=== PATIENT | male | born 1955 | race Caucasian/White ===

== ENCOUNTER 2017-01-18 23:52 | Emergency (ER) | payer OTHER ==
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
[2017-01-19] MEDS ORDERED: Sodium Chloride 0.9% 10 ML Syringe FLUSH PRN (00:12)
[2017-01-19] MEDS ORDERED: Iopamidol 755 Mg/ML 100 ML Bottle IVPUSH ONE (00:12)
[2017-01-19 01:10] VITALS: BP 156/101
[2017-01-19] MEDS ORDERED: HYDROmorphone 1 MG/ML Syringe IVPUSH ONE (01:28)
--- NOTE | 2017-01-20 09:54 | CT ---
CT chest Technique: Multiple axial sections through the chest were obtained. Intravenous contrast was utilized. Comparison: No previous chest imaging. Findings: Mediastinum and hilar regions appear within normal limits. No pericardial thickening is seen. No significant coronary artery calcification is noted. Chest wall structures appear within normal limits. Lungs are clear. No pulmonary contusion is seen. No pneumothorax or pleural effusion is seen. Bone window settings were reviewed. Slightly displaced fracture is seen within the right lateral sixth rib. Nondisplaced fracture is noted within the seventh through ninth ribs. No left-sided rib fracture is seen. No compression deformity is seen on the reconstructed sagittal images within the spine. Sternum appears intact on the reconstructed sagittal images. Impression: 1. Several right-sided rib fractures. Minimal displacement is noted within the sixth rib. 2. No other acute abnormality is appreciated. Diagnostic code #3 Agree with preliminary report issued by [employer] ([email or web address] preliminary report dictated on 01/19/17, 2:13 AM Central Time) CT abdomen and pelvis Technique: Multiple axial sections were obtained from above the dome of the diaphragm inferiorly through the pubic symphysis. Intravenous contrast was utilized. No oral contrast has been given. Delayed images were also obtained through the pelvis. Comparison: No previous abdominal imaging. Findings: Liver shows mild fatty infiltration. No focal abnormality is identified within the liver. Spleen appears within normal limits. Small soft tissue nodule noted medial to the spleen compatible with accessory splenic tissue. Adrenal glands show no nodule. Kidneys show symmetric contrast enhancement without hydronephrosis or mass. Gallbladder is contracted. No calcified gallstones are seen. Mild areas of the ectasia are seen within the aorta. Maximum AP dimension distally within the aorta is about 2.1 cm. Atherosclerotic calcification is noted within the aorta and iliac vessels. No retroperitoneal adenopathy or mesenteric abnormalities are seen. No pelvic mass or adenopathy is noted. Calcifications are seen within the prostate gland as an incidental note. Delayed images show contrast within the ureters and within the bladder with no contrast extravasation. No free fluid or inflammatory change is seen. Bone window settings were reviewed showing scattered degenerative change within the lumbar spine. No acute abnormality is appreciated within the lumbar spine or within the pelvis. Impression: 1. Fatty infiltration within the liver. Other incidental findings. 2. No acute abnormality is identified on CT study of the abdomen and pelvis. Diagnostic code #2 I agree with preliminary report issued by [employer] ([facility] preliminary report dictated on 01/19/17, 2:13 AM Central Time)
--- NOTE | 2017-01-20 09:54 | CT ---
Head CT Technique: Multiple axial sections through the brain were obtained. Intravenous contrast was not utilized. Comparison: No previous intracranial imaging. Findings: Ventricles along with basal cisterns and sulci over the convexities are mildly prominent. No abnormal parenchymal densities are seen. No evidence of intracranial hemorrhage. No midline shift or mass effect is seen. Bone window settings were reviewed which show nothing acute within the sinuses. No acute calvarial abnormality is appreciated. Impression: 1. Incidental findings. Nothing acute is identified on noncontrast head CT study. Diagnostic code #2 I agree with preliminary report issued by [email or web address] ([facility] preliminary report dictated on 01/19/17, 1:55 AM Central Time)
== END 2017-01-19 02:00 | disposition home or self-care (01) ==
LOC: JD.ED 23:52
DX: S22.41XA Multiple fractures of ribs, right side, initial encounter for closed fracture (principal); S51.811A Laceration without foreign body of right forearm, initial encounter; S41.112A Laceration without foreign body of left upper arm, initial encounter; S81.812A Laceration without foreign body, left lower leg, initial encounter; S81.811A Laceration without foreign body, right lower leg, initial encounter; S01.21XA Laceration without foreign body of nose, initial encounter; S01.81XA Laceration without foreign body of other part of head, initial encounter; S00.01XA Abrasion of scalp, initial encounter; S00.81XA Abrasion of other part of head, initial encounter; S00.212A Abrasion of left eyelid and periocular area, initial encounter; S40.812A Abrasion of left upper arm, initial encounter; S40.811A Abrasion of right upper arm, initial encounter; S20.212A Contusion of left front wall of thorax, initial encounter; S30.1XXA Contusion of abdominal wall, initial encounter; V47.5XXA Car driver injured in collision with fixed or stationary object in traffic accident, initial encounter; Y92.410 Unspecified street and highway as the place of occurrence of the external cause; F10.120 Alcohol abuse with intoxication, uncomplicated; K76.0 Fatty (change of) liver, not elsewhere classified; Z79.899 Other long term (current) drug therapy; Z88.5 Allergy status to narcotic agent
CPT/HCPCS: 36415; 70450; 71260; 74177; 80053; 85025; 96374; 99285; G0480; J1170; J7050; Q9967; 99284

== ENCOUNTER 2020-10-26 08:24 | Day surgery (SDC) | payer BC, OTHER ==
--- NOTE | 2020-10-16 10:02 | PCM.SN.2 ---
#1 Interpretation EKG Date: 10/16/20 Time: 07:08 Rhythm: NSR Rate (Beats/Min): 68 Western: LAD-Left Western Deviation P-Wave: Present QRS: Normal ST-T: Normal QT: Normal
[~2020-10-26 08:24] MED LIST: Lactated Ringers 1,000 ML IV SCH; Lidocaine 1%/Sod Bicarbonate in NS 8.4% 1 ML Syringe IDERM PRN; Sodium Chloride 0.9% 10 ML Syringe FLUSH PRN
[2020-10-26] MEDS ORDERED: Lidocaine 0.5% 50 ML SDV ONE (09:34)
[2020-10-26] MEDS ORDERED: Lidocaine 1% 2 ML ONE (09:45)
[2020-10-26] MEDS ORDERED: Propofol 200 MG/20 ML SDV ONE ×2 (09:45→10:22)
[2020-10-26] MEDS ORDERED: Midazolam 1 MG/ML 2 ML SDV ONE (09:46)
[2020-10-26] MEDS ORDERED: fentaNYL 100 MCG/2 ML SDV ONE (09:46)
--- NOTE | 2020-10-26 09:54 | PCM.PREANE ---
Preanesthetic Assessment - Procedure Proposed Procedure: Right long finger mass removal - Anesthesia/Transfusion/Family Hx Anesthesia History: Prior Anesthesia Without Reaction - Review of Systems General: No Symptoms Pulmonary: No Symptoms Cardiovascular: No Symptoms Gastrointestinal: No Symptoms Neurological: No Symptoms Other: Reports: None - Physical Assessment NPO Status Date: 10/25/20 NPO Status Time: 21:30 Vital Signs: Last Vital Signs Temp 98.7 F 10/26/20 09:00 Pulse 61 10/26/20 09:00 Resp 16 10/26/20 09:00 BP 155/98 H 10/26/20 09:00 Pulse Ox 99 10/26/20 09:00 Height: 1.73 m Weight: 77.111 kg ASA Class: 1 Mental Status: Alert & Oriented x3 Airway Class: Mallampati = 2 Dentition: Reports: Normal Dentition, Chaplin(s), Missing Tooth/Teeth Thyro-Mental Finger Breadths: 3 Mouth Opening Finger Breadths: 3 ROM/Head Extension: Full Lungs: Clear to Auscultation, Normal Respiratory Effort Cardiovascular: Regular Rate, Regular Rhythm - Lab Values: Laboratory Last Values MRSA (PCR) Negative 10/24/20 11:44 - Allergies Allergies/Adverse Reactions: Allergies Allergy/AdvReac Type Severity Reaction Status Date / Time propoxyphene Allergy Rash Verified 10/26/20 09:52 [From Susan] - Acknowledgements Anesthesia Type Planned: TL, MAC Pt an Appropriate Candidate for the Planned Anesthesia: Yes Alternatives and Risks of Anesthesia Discussed w Pt/Guardian: Yes Pt/Guardian Understands and Agrees with Anesthesia Plan: Yes PreAnesthesia Questionnaire HEENT History: Reports: Impaired Vision Cardiovascular History: Reports: Hypertension Respiratory History: Reports: None Gastrointestinal History: Reports: Hemorrhoids, Other (See Below) Other Gastrointestinal History: c diff, saldaña's esophagus Genitourinary History: Reports: None E BUSINESS PROJECT MANAGER History: Reports: None Other Musculoskeletal History: finger mass Neurological History: Reports: None Psychiatric History: Reports: None Endocrine/Metabolic History: Reports: Other (See Below) Other Endocrine/Metabolic History: decreased testosterone Hematologic History: Reports: None Immunologic History: Reports: None Oncologic (Cancer) History: Reports: None Dermatologic History: Reports: None - Infectious Disease History Infectious Disease History: Reports: C-Difficile - Past Surgical History HEENT Surgical History: Reports: LASIK Cardiovascular Surgical History: Reports: None Respiratory Surgical History: Reports: None GI Surgical History: Reports: Appendectomy, Colonoscopy, EGD Female Surgical History: Reports: None Male Surgical History: Reports: None Endocrine Surgical History: Reports: None Neurological Surgical History: Reports: None Musculoskeletal Surgical History: Reports: Other (See Below) Other Musculoskeletal Surgeries/Procedures:: hand/wrist surgery, knee surgery, shoulder surgery Oncologic Surgical History: Reports: None Dermatological Surgical History: Reports: None - SUBSTANCE USE Tobacco Use Status *Q: Never Tobacco User Recreational Drug Use History: No - HOME MEDS Home Medications: Home Meds Acetaminophen/HYDROcodone [[place] 325-5 MG] 1 - 2 tab PO Q6H PRN #4 tablet 10/25/20 [Rx] - CURRENT (IN HOUSE) MEDS Current Meds: Current Medications Lactated Ringer's (Ringers, Lactated) 1,000 mls @ 125 mls/hr IV ASDIRECTED VANESA Stop: 10/26/20 23:00 Last Admin: 10/26/20 09:10 Dose: 125 mls/hr Documented by: Lidocaine/Sodium Bicarbonate (Lidocaine 1%/Sod Bicarbonate In Ns 8.4% 1 Ml Syringe) 0.25 ml IDERM ONETIME PRN PRN Reason: Prior to IV Start Stop: 10/26/20 18:00 Sodium Chloride (Sodium Chloride 0.9% 10 Ml Syringe) 10 ml FLUSH ASDIRECTED PRN PRN Reason: Keep Vein Open Stop: 10/26/20 18:00 Discontinued Medications Fentanyl (Fentanyl 100 Mcg/2 Ml Sdv) Confirm Administered Dose 100 mcg .ROUTE .STK-MED ONE Stop: 10/26/20 09:47 Lactated Ringer's (Ringers, Lactated) 1,000 mls @ 125 mls/hr IV ASDIRECTED VANESA Stop: 10/28/18 23:00 Lidocaine HCl (Xylocaine-Mpf 1%) Confirm Administered Dose 2 mls @ as directed .ROUTE .STK-MED ONE Stop: 10/26/20 09:46 Lidocaine HCl (Lidocaine 0.5% 50 Ml Sdv) Confirm Administered Dose 50 ml .ROUTE .STK-MED ONE Stop: 10/26/20 09:35 Lidocaine/Sodium Bicarbonate (Buffered Lidocaine 1% In Ns 8.4%) 0.25 ml IDERM ONETIME PRN PRN Reason: Prior to IV Start Stop: 10/28/18 18:00 Midazolam HCl (Midazolam 1 Mg/Ml 2 Ml Sdv) Confirm Administered Dose 2 mg .ROUTE .STK-MED ONE Stop: 10/26/20 09:47 Propofol (Propofol 200 Mg/20 Ml Sdv) Confirm Administered Dose 200 mg .ROUTE .STK-MED ONE Stop: 10/26/20 09:46 Sodium Chloride (Saline Flush) 10 ml FLUSH ASDIRECTED PRN PRN Reason: Keep Vein Open Stop: 10/28/18 18:00
[2020-10-26] MEDS ORDERED: ceFAZolin 1 GM Vial ONE (10:12)
[2020-10-26] MEDS ORDERED: Bupivacaine 0.25% 10 ML SDV ONE (10:23)
[2020-10-26] MEDS ORDERED: Lidocaine 1% with EPINEPHrine 1:100,000 10 ML MDV ONE (10:26)
[2020-10-26] MEDS ORDERED: Lidocaine 1% 30 ML SDV ONE (10:28)
--- NOTE | 2020-10-26 11:06 | PCM48HPAN ---
Post Anesthesia Note - EVALUATION WITHIN 48HRS OF ANESTHETIC Vital Signs in Normal Range: Yes Patient Participated in Evaluation: Yes Respiratory Function Stable: Yes Airway Patent: Yes Cardiovascular Function Stable: Yes Hydration Status Stable: Yes Pain Control Satisfactory: Yes Nausea and Vomiting Control Satisfactory: Yes Mental Status Recovered: Yes Vital Signs: Last Vital Signs Temp 97.6 F 10/26/20 10:44 Pulse 80 10/26/20 10:44 Resp 16 10/26/20 10:44 BP 136/85 10/26/20 10:44 Pulse Ox 94 L 10/26/20 10:44
--- NOTE | 2020-10-26 11:36 | PCM.OPNOTE ---
- General Post-Op/Procedure Note Date of Surgery/Procedure: 10/26/20 Operative Procedure(s): excision of mass right middle finger DIP joint Pre Op Diagnosis: right middle finger mass Anesthesia Technique: Local, MAC, Regional Block Primary Surgeon: Kel Meyer Anesthesia Provider: Pb Peterson Manager Library: Dixie Nielson EBL in mLs: 5 Complications: None Condition: Good
[2020-10-26 12:32] VITALS: BP 135/86; PULSE 51
--- NOTE | 2020-11-02 10:04 | OR ---
DATE OF OPERATION: 10/26/2020 SURGEON: Kel Meyer MD OPERATION PERFORMED: Excision of mass, right middle finger distal interphalangeal joint. PREOPERATIVE DIAGNOSIS: Right middle finger mass. POSTOPERATIVE DIAGNOSIS: Right middle finger mass. ANESTHESIA: Local MAC with regional block. ANESTHESIA PROVIDER: Sonal Godinez. SAMPLE TESTER: Dixie Nielson LPN. ESTIMATED BLOOD LOSS: 5 mL. COMPLICATIONS: None. CONDITION: Stable. DESCRIPTION OF PROCEDURE: The patient was identified in the preoperative holding area. Proper site was marked and identified by the surgeon. The patient was taken back to the operative theater where after adequate anesthesia with a Bell block, the right upper extremity was sterilely prepped and draped in the usual sterile fashion. OR time-out was performed. The patient received no antibiotics and it is not indicated for soft tissue hand procedure at this time. An incision was made, centered over the mass of the radial side of the DIP joint, this was taken down. It was noted to be a calcified mass off the capsule deep into the capsule. At this time with the use of a [place] blade and a rongeur, I was able to resect all the mass down to the capsular joint. There was no significant fluid and no signs of ganglion cyst or any neoplasm. At this time, it was found to be completely resected. All of it was sent to Pathology for permanent specimen. The size of the mass was roughly 8 mm x 8 mm. At this time, adequate saline was irrigated through the wound and 4-0 nylon suture was used for closure of the skin. The patient tolerated the procedure well and was sent to the PACU in stable condition. MMODAL /[id number]
== END 2020-10-26 11:32 | disposition home or self-care (01) ==
LOC: JD.SDS 08:24
PROVIDERS: ATTEND Orthopaedic Surgery
DX: M25.841 Other specified joint disorders, right hand (principal); K64.9 Unspecified hemorrhoids; K21.9 Gastro-esophageal reflux disease without esophagitis; I10 Essential (primary) hypertension; Z90.49 Acquired absence of other specified parts of digestive tract; Z98.890 Other specified postprocedural states; Z88.8 Allergy status to other drugs, medicaments and biological substances
CPT/HCPCS: 26160; J0690; J2250; J2704; J3010; J3490; J7120; 00400; 87641

== ENCOUNTER 2021-04-05 07:00 | Day surgery (SDC) | payer BC ==
--- NOTE | 2021-04-05 07:01 | PCM.PREANE ---
Preanesthetic Assessment - Procedure Proposed Procedure: EGD and colonoscopy - Anesthesia/Transfusion/Family Hx Anesthesia History: Prior Anesthesia Without Reaction Family History of Anesthesia Reaction: No Transfusion History: No Prior Transfusion(s) Intubation History: Unknown - Review of Systems General: No Symptoms Pulmonary: No Symptoms Cardiovascular: No Symptoms Gastrointestinal: Abdominal Pain (Cramping), Diarrhea, Nausea, Vomiting, Other (Patient stated that he had a streak of blood when he vomited (one episode)) Neurological: Headache Other: Reports: Easy Bleeding, Easy Bruising, Anxiety - Physical Assessment NPO Status Date: 04/05/21 NPO Status Time: 04:30 Vital Signs: BP 145/96 HR 68 97% RA 98.9 RR 18 Height: 1.73 m Weight: 69.4 kg ASA Class: 2 Mental Status: Alert & Oriented x3 Airway Class: Mallampati = 3 Dentition: Reports: [place](s), Missing Tooth/Teeth Thyro-Mental Finger Breadths: 3 Mouth Opening Finger Breadths: 3 ROM/Head Extension: Full Lungs: Clear to Auscultation, Normal Respiratory Effort Cardiovascular: Regular Rate, Regular Rhythm, No Murmurs - Lab Values: Labs reviewed from 12/06/20 and okay to proceed - Allergies Allergies/Adverse Reactions: Allergies Allergy/AdvReac Type Severity Reaction Status Date / Time propoxyphene Allergy Rash Verified 04/04/21 15:55 [From Susan] - Blood Blood Available: No Product(s) Available: None - Acknowledgements Anesthesia Type Planned: MAC Pt an Appropriate Candidate for the Planned Anesthesia: Yes Alternatives and Risks of Anesthesia Discussed w Pt/Guardian: Yes Pt/Guardian Understands and Agrees with Anesthesia Plan: Yes PreAnesthesia Questionnaire HEENT History: Reports: None Cardiovascular History: Reports: Hypertension Respiratory History: Reports: None Gastrointestinal History: Reports: GERD, Hemorrhoids, Other (See Below) Other Gastrointestinal History: c diff, saldaña's esophagus?, hx hypomagnesemia Genitourinary History: Reports: Other (See Below) Other Genitourinary History: decreased testosterone 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 Other Musculoskeletal History: finger mass, hand surgery Neurological History: Reports: None Psychiatric History: Reports: Anxiety Endocrine/Metabolic History: Reports: Other (See Below) Other Endocrine/Metabolic History: decreased testosterone Hematologic History: Reports: Other (See Below) Other Hematologic History: Thrombocyopenia Immunologic History: Reports: None Oncologic (Cancer) History: Reports: None Dermatologic History: Reports: Cellulitis - Infectious Disease History Infectious Disease History: Reports: C-Difficile - Past Surgical History HEENT Surgical History: Reports: LASIK Cardiovascular Surgical History: Reports: None Respiratory Surgical History: Reports: None GI Surgical History: Reports: Appendectomy, Colonoscopy, EGD Female Surgical History: Reports: None Male Surgical History: Reports: None Endocrine Surgical History: Reports: None Neurological Surgical History: Reports: None Musculoskeletal Surgical History: Reports: Other (See Below) Other Musculoskeletal Surgeries/Procedures:: Ulnar resection to the right wrist; knee surgery; shoulder surgery Oncologic Surgical History: Reports: None Dermatological Surgical History: Reports: None - SUBSTANCE USE Tobacco Use Status *Q: Never Tobacco User Tobacco Use Within Last Twelve Months: No Second Hand Smoke Exposure: No Days Per Week of Alcohol Use: 3 Number of Drinks Per Day: 2 Total Drinks Per Week: 6 Date of Last Drink: 03/31/21 Time of Last Drink: 19:30 Recreational Drug Use History: No - HOME MEDS Home Medications: Home Meds Cyanocobalamin (Vitamin B-12) [Vitamin B-12] 100 mcg PO DAILY 10/26/20 [History] Esomeprazole [NexIUM] 20 mg PO DAILY 10/26/20 [History] Ferrous Sulfate [Iron] 325 mg PO DAILY 10/26/20 [History] Magnesium Oxide 250 mg PO DAILY 10/26/20 [History] Multivitamin 1 mg PO DAILY 10/26/20 [History] Testosterone 200 mg PO ASDIRECTED 10/26/20 [History] Zinc Acetate [Galzin] 30 mg PO DAILY 10/26/20 [History] Cholecalciferol (Vitamin D3) [Vitamin D3] 2,000 unit PO DAILY 04/04/21 [History] Ferrous Sulfate [Iron] 325 mg PO DAILY 04/04/21 [History] Hydrocortisone [Anusol-HC] 1 dose RECTAL ASDIRECTED 04/04/21 [History] fluorouraciL [Fluorouracil] 1 dose TOP ASDIRECTED 04/04/21 [History] - CURRENT (IN HOUSE) MEDS Current Meds: Current Medications Lactated Ringer's (Ringers, Lactated) 1,000 mls @ 125 mls/hr IV ASDIRECTED VANESA Stop: 04/05/21 23:00 Lidocaine/Sodium Bicarbonate (Lidocaine 1%/Sod Bicarbonate In Ns 8.4% 1 Ml Syringe) 0.25 ml IDERM ONETIME PRN PRN Reason: Prior to IV Start Stop: 04/05/21 18:00 Sodium Chloride (Sodium Chloride 0.9% 10 Ml Syringe) 10 ml FLUSH ASDIRECTED PRN PRN Reason: Keep Vein Open Stop: 04/05/21 18:00
[2021-04-05] MEDS ORDERED: Lidocaine 1% 4 ML ONE (07:41)
[2021-04-05] MEDS ORDERED: Midazolam 1 MG/ML 2 ML SDV ONE (07:42)
[2021-04-05] MEDS ORDERED: Propofol 200 MG/20 ML SDV ONE ×3 (07:43→08:10)
[2021-04-05] MEDS ORDERED: fentaNYL 100 MCG/2 ML SDV ONE (07:43)
[2021-04-05] MEDS ORDERED: Lactated Ringers 1,000 ML ONE (08:28)
[2021-04-05] MEDS ORDERED: Ondansetron 4 MG/2 ML SDV ONE (08:33)
--- NOTE | 2021-04-05 08:45 | PCM48HPAN ---
Post Anesthesia Note - EVALUATION WITHIN 48HRS OF ANESTHETIC Vital Signs in Normal Range: Yes Patient Participated in Evaluation: Yes Respiratory Function Stable: Yes Airway Patent: Yes Cardiovascular Function Stable: Yes Hydration Status Stable: Yes Pain Control Satisfactory: Yes Nausea and Vomiting Control Satisfactory: Yes Mental Status Recovered: Yes Vital Signs: Last Vital Signs Temp 98.1 F 04/05/21 07:00 Pulse 75 04/05/21 07:00 Resp 16 04/05/21 07:00 BP 145/90 H 04/05/21 07:00 Pulse Ox 98 04/05/21 07:00 0840: 142/95 HR 69 96% RA RR 18 98.4
--- NOTE | 2021-04-05 08:53 | PCM.PRNOTE ---
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 Mild mucosal inflammation of the proximal colon with petechial appearance. Bowel prep was good. No polyps identified. Minor diverticulosis of the sigmoid colon. Grade 4 hemorrhoids. Detailed Report: The patient was taken to the endoscopy suite and placed in left lateral decubitus position. Timeout was performed and monitored anesthesia care was initiated. A bite-block was placed and the endoscope was introduced into the mouth. The scope was advanced all the way to the duodenum with ease. Duodenal mucosa appeared normal. A biopsy of mucosa from the duodenal bulb was obtained with cold forceps. The scope was withdrawn into the stomach. The pylorus and antrum appeared normal, and a biopsy of antral mucosa was obtained. The mid body and proximal part of the stomach had abnormal appearing cobblestone-like mucosa consistent with chronic change associated with PPI use; multiple biopsies were obtained. On retroflexion, a small sliding hiatal hernia was visualized. The scope was withdrawn proximal to the Z-line. There appeared to be some short segment Shearer's changes grossly, with mild inflammatory change of the distal esophagus consistent with reflux disease. Biopsies were obtained at the GE junction as well as just proximal to this. A submucosal prominence was appreciated at the distal third of the esophagus, and a biopsy was obtained of this lesion. The remainder of the esophagus appeared normal, and air was suctioned from the stomach and esophagus as the scope was withdrawn. Next, at tention was turned to colonoscopy. On inspection, there were grade 4 hemorrhoids. Digital rectal exam was unremarkable. The colonoscope was inserted and advanced all the way to the cecum with ease. Scar at the site of appendectomy was appreciated, and the ileocecal valve was visualized. The prep was excellent. Along the proximal half of the colon, minor mucosal inflammatory changes were noted, including a petechial appearance. A sample biopsy of affected tissue was obtained at the cecum. The scope was slowly withdrawn and mucosal surfaces carefully inspected. No polyps were identified. There were a few scattered small diverticula in the sigmoid colon. Retroflexion within the rectum was difficult due to the advanced hemorrhoidal disease. No pathology was noted otherwise. Air was suctioned from the distal colon and rectum prior to withdrawal of the scope. The patient tolerated the procedure well.
[2021-04-05 09:18] VITALS: BP 150/98; PULSE 65
== END 2021-04-05 09:23 | disposition home or self-care (01) ==
LOC: JD.SDS 07:00
PROVIDERS: ATTEND Surgery
DX: Z12.11 Encounter for screening for malignant neoplasm of colon (principal); K21.00 Gastro-esophageal reflux disease with esophagitis, without bleeding; K44.9 Diaphragmatic hernia without obstruction or gangrene; K64.3 Fourth degree hemorrhoids; K57.30 Diverticulosis of large intestine without perforation or abscess without bleeding; D69.6 Thrombocytopenia, unspecified; Z88.8 Allergy status to other drugs, medicaments and biological substances; Z79.899 Other long term (current) drug therapy; Z90.49 Acquired absence of other specified parts of digestive tract; Z98.890 Other specified postprocedural states
CPT/HCPCS: 43239; 45380; J2250; J2405; J2704; J3010; J7120; 00813

== ENCOUNTER 2021-04-06 06:36 | Day surgery (SDC) | payer BC ==
--- NOTE | 2021-04-05 13:52 | PCM.PREANE ---
Preanesthetic Assessment - Procedure Proposed Procedure: Hemorrhoidectomy/Hemorrhoid banding - Anesthesia/Transfusion/Family Hx Anesthesia History: Prior Anesthesia Without Reaction Family History of Anesthesia Reaction: No Transfusion History: No Prior Transfusion(s) Intubation History: Unknown - Review of Systems General: No Symptoms (15 pound weight loss recently) Pulmonary: No Symptoms (ETOH: 2 drinks three times per week) Cardiovascular: No Symptoms (history of HTN) Gastrointestinal: No Symptoms (GERD/ history of c-diff, history of barretts esophagus), Abdominal Pain (history of) Neurological: No Symptoms (lower back pain/) Other: Reports: None (History of thrombocytopenia), Easy Bleeding, Easy Bruising, Anxiety - Physical Assessment NPO Status Date: 04/05/21 NPO Status Time: 17:30 Vital Signs: HR: 68 Sat: 93% Temp: 97.8 B/P: 144/87 Resp: 18 Height: 1.73 m Weight: 71 kg ASA Class: 2 Mental Status: Alert & Oriented x3 Airway Class: Mallampati = 3 Dentition: Reports: [place](s), Missing Tooth/Teeth Thyro-Mental Finger Breadths: 3 Mouth Opening Finger Breadths: 3 ROM/Head Extension: Full Lungs: Clear to Auscultation, Normal Respiratory Effort Cardiovascular: Regular Rate, Regular Rhythm, No Murmurs - Lab Values: All labs reviewed and noted and within acceptable ranges to proceed with scheduled procedure. - Allergies Allergies/Adverse Reactions: Allergies Allergy/AdvReac Type Severity Reaction Status Date / Time propoxyphene Allergy Rash Verified 04/05/21 07:29 [From Susan] - Anesthesia Plan Pre-Op Medication Ordered: None - Acknowledgements Anesthesia Type Planned: MAC Pt an Appropriate Candidate for the Planned Anesthesia: Yes Alternatives and Risks of Anesthesia Discussed w Pt/Guardian: Yes Pt/Guardian Understands and Agrees with Anesthesia Plan: Yes PreAnesthesia Questionnaire HEENT History: Reports: None Cardiovascular History: Reports: Hypertension Respiratory History: Reports: None Gastrointestinal History: Reports: GERD, Hemorrhoids, Other (See Below) Other Gastrointestinal History: c diff, saldaña's esophagus?, hx hypomagnesemia Genitourinary History: Reports: None Other Genitourinary History: decreased testosterone 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 Other Musculoskeletal History: finger mass Neurological History: Reports: None Psychiatric History: Reports: Anxiety Endocrine/Metabolic History: Reports: Other (See Below) Other Endocrine/Metabolic History: decreased testosterone Hematologic History: Reports: Other (See Below) Other Hematologic History: Thrombocyopenia Immunologic History: Reports: None Oncologic (Cancer) History: Reports: None Dermatologic History: Reports: None - Infectious Disease History Infectious Disease History: Reports: C-Difficile - Past Surgical History HEENT Surgical History: Reports: LASIK Cardiovascular Surgical History: Reports: None Respiratory Surgical History: Reports: None GI Surgical History: Reports: Appendectomy, Colonoscopy, EGD Female Surgical History: Reports: None Male Surgical History: Reports: None Endocrine Surgical History: Reports: None Neurological Surgical History: Reports: None Musculoskeletal Surgical History: Reports: Other (See Below) Other Musculoskeletal Surgeries/Procedures:: Ulnar resection to the right wrist; knee surgery; shoulder surgery Oncologic Surgical History: Reports: None Dermatological Surgical History: Reports: None - HOME MEDS Home Medications: Home Meds Cyanocobalamin (Vitamin B-12) [Vitamin B-12] 100 mcg PO DAILY 10/26/20 [History] Esomeprazole [NexIUM] 20 mg PO DAILY 10/26/20 [History] Ferrous Sulfate [Iron] 325 mg PO DAILY 10/26/20 [History] Magnesium Oxide 250 mg PO DAILY 10/26/20 [History] Multivitamin 1 mg PO DAILY 10/26/20 [History] Testosterone 200 mg PO ASDIRECTED 10/26/20 [History] Zinc Acetate [Galzin] 30 mg PO DAILY 10/26/20 [History] Cholecalciferol (Vitamin D3) [Vitamin D3] 2,000 unit PO DAILY 04/04/21 [History] Ferrous Sulfate [Iron] 325 mg PO DAILY 04/04/21 [History] Hydrocortisone [Anusol-HC] 1 dose RECTAL ASDIRECTED 04/04/21 [History] fluorouraciL [Fluorouracil] 1 dose TOP ASDIRECTED 04/04/21 [History] - CURRENT (IN HOUSE) MEDS Current Meds: Current Medications Lactated Ringer's (Ringers, Lactated) 1,000 mls @ 125 mls/hr IV ASDIRECTED VANESA Stop: 04/06/21 23:00 Lidocaine/Sodium Bicarbonate (Lidocaine 1%/Sod Bicarbonate In Ns 8.4% 1 Ml Syringe) 0.25 ml IDERM ONETIME PRN PRN Reason: Prior to IV Start Stop: 04/06/21 18:00 Sodium Chloride (Sodium Chloride 0.9% 10 Ml Syringe) 10 ml FLUSH ASDIRECTED PRN PRN Reason: Keep Vein Open Stop: 04/06/21 18:00
[2021-04-06] MEDS ORDERED: Bupivacaine 0.5%/EPINEPHrine 1:200,000 50 ML MDV ONE (06:46)
[2021-04-06] MEDS ORDERED: Lidocaine 1% with EPINEPHrine 1:100,000 10 ML MDV ONE (06:46)
[2021-04-06] MEDS ORDERED: Bacitracin Oint 15 GM Tube ONE (06:46)
[2021-04-06] MEDS ORDERED: Propofol 200 MG/20 ML SDV ONE ×4 (06:47→08:23)
[2021-04-06] MEDS ORDERED: fentaNYL 100 MCG/2 ML SDV ONE (06:47)
[2021-04-06] MEDS ORDERED: Lidocaine 1% 4 ML ONE (06:47)
[2021-04-06] MEDS ORDERED: Ondansetron 4 MG/2 ML SDV ONE (06:47)
[2021-04-06] MEDS ORDERED: Midazolam 1 MG/ML 2 ML SDV ONE ×2 (06:48→07:23)
[2021-04-06] MEDS ORDERED: Lactated Ringers 1,000 ML ONE ×2 (07:23→08:38)
[2021-04-06] MEDS ORDERED: ePHEDrine 50 MG/ML SDV IVPUSH PRN (07:56)
[2021-04-06] MEDS ORDERED: diphenhydrAMINE 50 MG/ML SDV IVPUSH PRN (07:56)
[2021-04-06] MEDS ORDERED: Ondansetron 4 MG/2 ML SDV IVPUSH PRN (07:56)
[2021-04-06] MEDS ORDERED: fentaNYL 100 MCG/2 ML SDV IVPUSH PRN (07:56)
[2021-04-06] MEDS ORDERED: HYDROmorphone 0.5 MG/0.5 ML Syringe IVPUSH PRN (07:56)
[2021-04-06] MEDS ORDERED: HYDROmorphone 0.5 MG/0.5 ML Syringe ONE ×2 (08:12→08:13)
--- NOTE | 2021-04-06 09:02 | PCM48HPAN ---
Post Anesthesia Note - EVALUATION WITHIN 48HRS OF ANESTHETIC Vital Signs in Normal Range: Yes Patient Participated in Evaluation: Yes Respiratory Function Stable: Yes Airway Patent: Yes Cardiovascular Function Stable: Yes Hydration Status Stable: Yes Pain Control Satisfactory: Yes Nausea and Vomiting Control Satisfactory: Yes Mental Status Recovered: Yes Vital Signs: Last Vital Signs Temp 36.6 C 04/06/21 06:58 Pulse Resp 16 04/06/21 06:58 BP 144/87 H 04/06/21 06:58 Pulse Ox 93 L 04/06/21 06:58
[2021-04-06 09:32] VITALS: BP 138/95; PULSE 98
--- NOTE | 2021-04-06 10:19 | PCM.PRNOTE ---
- Free Text/Narrative Note: Date: 04/06/2021 Operation: hemorrhoidectomy Surgeon: Leno Aldana MD Findings: advanced hemorrhoidal disease Detailed Report: The patient was taken to the OR and time out was performed. Monitored anesthesia care was initiated and the patient was positioned in lithotomy. The perineum and anus were prepped and draped in sterile fashion. A perianal block of 40 cc 0.5% marcaine with epinephrine was administered. Four-finger gentle stretch of the anal canal was performed. The left lateral hemorrhoidal column was retracted inferolaterally with two straight clamps to position the pile extra-anally. A combination of electrocautery and scissors was used to excise the hemorrhoidal column. Prior to transection at the pedicle proximally, a silk ligature was placed. This slipped off after transection of the pedicle. Hemostasis was achieved with placement of interrupted chromic gut sutures. A daughter pile was seen bleeding adjacent to the excision site, and this was clamped with a silk suture ligature placed at the base. With satisfactory hemostasis, the anal canal was filled with bacitracin ointment. The decision was made to delay excision of the right columns to avoid post-hemorrhoidectomy anal stenosis. The patient tolerated the procedure well.
== END 2021-04-06 09:45 | disposition home or self-care (01) ==
LOC: JD.SDS 06:36
PROVIDERS: ATTEND Surgery
DX: K64.8 Other hemorrhoids (principal); K21.9 Gastro-esophageal reflux disease without esophagitis; E83.42 Hypomagnesemia; I10 Essential (primary) hypertension; Z88.8 Allergy status to other drugs, medicaments and biological substances; Z79.899 Other long term (current) drug therapy; Z98.890 Other specified postprocedural states; Z90.49 Acquired absence of other specified parts of digestive tract
CPT/HCPCS: 46255; A9270; J1170; J2250; J2405; J2704; J3010; J3490; J7120; 00902

== ENCOUNTER → 2021-05-10 | Day surgery (SDC) | payer BC ==
[~2021-05-10] MED LIST changes: +Bacitracin Oint 15 GM Tube ONE; +Bupivacaine 0.5% 30 ML SDV ONE; +Ketamine 500 mg/10 ML MDV ONE; +Lactated Ringers 1,000 ML ONE; +Lidocaine 1% with EPINEPHrine 1:100,000 10 ML MDV ONE; +Midazolam 1 MG/ML 2 ML SDV ONE; +Ondansetron 4 MG/2 ML SDV ONE; +Propofol 200 MG/20 ML SDV ONE; +fentaNYL 100 MCG/2 ML SDV IVPUSH ONE; +fentaNYL 100 MCG/2 ML SDV ONE
--- NOTE | 2021-05-10 10:21 | PCM.PREANE ---
Preanesthetic Assessment - Procedure Proposed Procedure: Hemorrhoidectomy - Anesthesia/Transfusion/Family Hx Anesthesia History: Prior Anesthesia Without Reaction Family History of Anesthesia Reaction: No Transfusion History: No Prior Transfusion(s) Intubation History: Unknown - Review of Systems General: No Symptoms Pulmonary: No Symptoms Cardiovascular: No Symptoms Gastrointestinal: No Symptoms Neurological: Tremors (with anxiety) Other: Reports: Easy Bleeding, Anxiety - Physical Assessment NPO Status Date: 05/09/21 NPO Status Time: 17:00 Vital Signs: Last Vital Signs Temp 98.8 F 05/10/21 09:30 Pulse 64 05/10/21 09:30 Resp 18 05/10/21 09:30 BP 163/92 H 05/10/21 09:30 Pulse Ox 99 05/10/21 09:30 Height: 1.73 m Weight: 67.585 kg ASA Class: 2 Mental Status: Alert & Oriented x3 Airway Class: Mallampati = 2 Dentition: Reports: Normal Dentition, [place](s) Thyro-Mental Finger Breadths: 3 Mouth Opening Finger Breadths: 3 ROM/Head Extension: Full Lungs: Clear to Auscultation, Normal Respiratory Effort Cardiovascular: Regular Rate, Regular Rhythm, No Murmurs - Allergies Allergies/Adverse Reactions: Allergies Allergy/AdvReac Type Severity Reaction Status Date / Time hydrocodone Allergy Itching Verified 05/10/21 10:04 propoxyphene Allergy Rash Verified 05/10/21 10:04 [From Darrodgert-N] - Blood Blood Available: No Product(s) Available: None - Acknowledgements Anesthesia Type Planned: MAC Pt an Appropriate Candidate for the Planned Anesthesia: Yes Alternatives and Risks of Anesthesia Discussed w Pt/Guardian: Yes Pt/Guardian Understands and Agrees with Anesthesia Plan: Yes PreAnesthesia Questionnaire HEENT History: Reports: None Cardiovascular History: Reports: Hypertension Respiratory History: Reports: None Gastrointestinal History: Reports: GERD, Hemorrhoids, Other (See Below) Other Gastrointestinal History: hx hypomagnesemia, tubular adenoma of colon Genitourinary History: Reports: Other (See Below) Other Genitourinary History: decreased testosterone 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 Other Musculoskeletal History: finger mass Neurological History: Reports: None Psychiatric History: Reports: Anxiety Endocrine/Metabolic History: Reports: Other (See Below) Other Endocrine/Metabolic History: decreased testosterone Hematologic History: Reports: None, Other (See Below) Other Hematologic History: Thrombocyopenia Immunologic History: Reports: None Oncologic (Cancer) History: Reports: None Dermatologic History: Reports: None - Infectious Disease History Infectious Disease History: Reports: None - Past Surgical History Head Surgeries/Procedures: Reports: None HEENT Surgical History: Reports: BRYCEIK Cardiovascular Surgical History: Reports: None Respiratory Surgical History: Reports: None GI Surgical History: Reports: Appendectomy, Colonoscopy, EGD, Other (See Below) Other GI Surgeries/Procedures: hemorrhoidectomy Female Surgical History: Reports: None Male Surgical History: Reports: None Endocrine Surgical History: Reports: None Neurological Surgical History: Reports: None Musculoskeletal Surgical History: Reports: Other (See Below) Other Musculoskeletal Surgeries/Procedures:: Ulnar resection to the right wrist; knee surgery; shoulder surgery; hand surgery Oncologic Surgical History: Reports: None Dermatological Surgical History: Reports: None - SUBSTANCE USE Tobacco Use Status *Q: Never Tobacco User Tobacco Use Within Last Twelve Months: No Second Hand Smoke Exposure: No Days Per Week of Alcohol Use: 1 Number of Drinks Per Day: 2 Total Drinks Per Week: 2 Date of Last Drink: 05/05/21 Time of Last Drink: 18:00 Recreational Drug Use History: No - HOME MEDS Home Medications: Home Meds Cyanocobalamin (Vitamin B-12) [Vitamin B-12] 100 mcg PO DAILY 10/26/20 [History] Esomeprazole [NexIUM] 20 mg PO DAILY 10/26/20 [History] Magnesium Oxide 250 mg PO DAILY 10/26/20 [History] Multivitamin 1 mg PO DAILY 10/26/20 [History] Testosterone 200 mg PO ASDIRECTED 10/26/20 [History] Zinc Acetate [Galzin] 30 mg PO DAILY 10/26/20 [History] Cholecalciferol (Vitamin D3) [Vitamin D3] 2,000 unit PO DAILY 04/04/21 [History] Ferrous Sulfate [Iron] 325 mg PO DAILY 04/04/21 [History] Hydrocortisone [Anusol-HC] 1 dose RECTAL ASDIRECTED 04/04/21 [History] fluorouraciL [Fluorouracil] 1 dose TOP ASDIRECTED 04/04/21 [History] - CURRENT (IN HOUSE) MEDS Current Meds: Current Medications Lactated Ringer's (Ringers, Lactated) 1,000 mls @ 125 mls/hr IV ASDIRECTED VANESA Stop: 05/10/21 23:00 Last Admin: 05/10/21 09:15 Dose: 125 mls/hr Documented by: Lidocaine/Sodium Bicarbonate (Lidocaine 1%/Sod Bicarbonate In Ns 8.4% 1 Ml Syringe) 0.25 ml IDERM ONETIME PRN PRN Reason: Prior to IV Start Stop: 05/10/21 18:00 Last Admin: 05/10/21 09:15 Dose: 0.25 ml Documented by: Sodium Chloride (Sodium Chloride 0.9% 10 Ml Syringe) 10 ml FLUSH ASDIRECTED PRN PRN Reason: Keep Vein Open Stop: 05/10/21 18:00 Discontinued Medications Fentanyl (Fentanyl 100 Mcg/2 Ml Sdv) Confirm Administered Dose 100 mcg .ROUTE .STK-MED ONE Stop: 05/10/21 10:11 Midazolam HCl (Midazolam 1 Mg/Ml 2 Ml Sdv) Confirm Administered Dose 2 mg .ROUTE .STK-MED ONE Stop: 05/10/21 10:11 Propofol (Propofol 200 Mg/20 Ml Sdv) Confirm Administered Dose 200 mg .ROUTE .ST K-MED ONE Stop: 05/10/21 10:10
--- NOTE | 2021-05-10 11:49 | PCM48HPAN ---
Post Anesthesia Note - EVALUATION WITHIN 48HRS OF ANESTHETIC Vital Signs in Normal Range: Yes Patient Participated in Evaluation: Yes Respiratory Function Stable: Yes Airway Patent: Yes Cardiovascular Function Stable: Yes Hydration Status Stable: Yes Pain Control Satisfactory: Yes Nausea and Vomiting Control Satisfactory: Yes Mental Status Recovered: Yes Vital Signs: Last Vital Signs Temp 37.1 C 05/10/21 09:30 Pulse 64 05/10/21 09:30 Resp 18 05/10/21 09:30 BP 163/92 H 05/10/21 09:30 Pulse Ox 99 05/10/21 09:30
--- NOTE | 2021-05-10 11:59 | PCM.PRNOTE ---
- Free Text/Narrative Note: Date: 05/10/2021 Operation: two column hemorrhoidectomy History: grade 4 symptomatic hemorrhoids, left lateral column excised several weeks ago Surgeon: Leno Aldana MD Findings: right anterior and posterior grade 4 hemorrhoids Detailed Report: The patient was taken to the operating room and placed on the table in supine position. Timeout was performed and monitored anesthesia care was initiated. The patient was repositioned in lithotomy. The perineum and anal canal were prepped with iodine and sterile drapes were placed. 20 cc of 0.5% Marcaine with epinephrine was injected perianally in the subcutaneous tissue. Forefinger digital stretch of the sphincter was performed, taking care not to tear tissue. Next, straight clamps were placed to exteriorize the 2 hemorrhoidal columns. Distal clamp was at the distalmost aspect of the hemorrhoid and proximal clamp was at the mucosal pedicle. A combination of monopolar energy and scissors were used to excise the hemorrhoid to the level just proximal to the pedicle clamp. After excision, 2-0 silk tie was placed to ligate the pedicle. The posterior column was addressed first followed by the anterior column. Care was taken to preserve an interim between the 2 sites of excision. On inspection with the anal speculum, there was some hemorrhage which was controlled with targeted placement of interrupted chromic gut suture. Pressure was held manually and hemostasis was satisfactory after a few minutes. Antibiotic ointment was placed in the anal canal and 4 x 4's were placed between the buttocks before placing mesh underwear. The patient tolerated the procedure well.
[2021-05-10 12:51] VITALS: BP 146/103; PULSE 68
== END | disposition home or self-care (01) ==
LOC: JD.SDS 08:54
PROVIDERS: ATTEND Surgery
DX: K64.3 Fourth degree hemorrhoids (principal); K21.9 Gastro-esophageal reflux disease without esophagitis; E29.1 Testicular hypofunction; D69.6 Thrombocytopenia, unspecified; I10 Essential (primary) hypertension; Z88.8 Allergy status to other drugs, medicaments and biological substances; Z79.899 Other long term (current) drug therapy; Z90.49 Acquired absence of other specified parts of digestive tract; Z98.890 Other specified postprocedural states
CPT/HCPCS: 46930; A9270; J2250; J2405; J2704; J3010; J3490; J7120; 00902

== ENCOUNTER 2021-09-30 10:28 | Emergency (ER) | payer BC, MEDICARE ==
[2021-09-30 10:54] VITALS: BP 174/111; PULSE 109
[2021-09-30] MEDS ORDERED: Sodium Chloride 0.9% 10 ML Syringe FLUSH PRN (11:37)
[2021-09-30] MEDS ORDERED: Iopamidol 612 MG/ML 100 ML Bottle IVPUSH ONE (11:56)
[2021-09-30] MEDS ORDERED: Iopamidol 612 MG/ML 50 ML SDV IVPUSH ONE (11:56)
== END 2021-09-30 14:30 | disposition home or self-care (01) ==
LOC: JD.ED 10:28
DX: S00.83XA Contusion of other part of head, initial encounter (principal); S20.214A Contusion of middle front wall of thorax, initial encounter; S20.222A Contusion of left back wall of thorax, initial encounter; S40.011A Contusion of right shoulder, initial encounter; I10 Essential (primary) hypertension; Z88.5 Allergy status to narcotic agent; Z88.8 Allergy status to other drugs, medicaments and biological substances; W10.8XXA Fall (on) (from) other stairs and steps, initial encounter
CPT/HCPCS: 36415; 70450; 71260; 74177; 80053; 85025; 86140; 96374; 96375; 99285; Q9967

== ENCOUNTER 2022-07-29 13:52 | Emergency (ER) | payer MEDICARE, BC ==
[2022-07-29] MEDS ORDERED: Sodium Chloride 0.9% 10 ML Syringe FLUSH PRN (14:54)
[2022-07-29] MEDS ORDERED: HYDROmorphone 1 MG/ML Syringe IVPUSH ONE ×2 (14:56→17:19)
[2022-07-29 16:34] LABS: CORONAVIRUS COVID-19 NAA NEGATIVE (NEGATIVE)
[2022-07-29 19:08] VITALS: BP 126/78; PULSE 107
== END 2022-07-29 18:52 | disposition home or self-care (01) ==
LOC: JD.ED 13:52
DX: R17 Unspecified jaundice (principal); I10 Essential (primary) hypertension; Z88.5 Allergy status to narcotic agent; Z91.041 Radiographic dye allergy status; Z88.8 Allergy status to other drugs, medicaments and biological substances; Z90.49 Acquired absence of other specified parts of digestive tract; Z20.822 Contact with and (suspected) exposure to COVID-19
CPT/HCPCS: 0241U; 36415; 74176; 76705; 81001; 83690; 85610; 85730; 86308; 86850; 86900; 86901; 96374; 96376; 99285; J1170; J3490; 80053; 83010; 83615; 85025; 85379; 85652

== ENCOUNTER 2022-07-30 10:50 | Emergency (ER) | payer MEDICARE, BC ==
[2022-07-30] MEDS ORDERED: Sodium Chloride 0.9% 10 ML Syringe FLUSH PRN (11:28)
[2022-07-30] MEDS ORDERED: cefTRIAXone 1 GM in Sodium Chloride 0.9% 100 ML IV ONE (11:30)
[2022-07-30] MEDS ORDERED: Sodium Chloride 0.9% 1,000 ML IV SCH (11:30)
[2022-07-30] MEDS ORDERED: metroNIDAZOLE/Normal Saline 500 MG in Premix Bag 1 BAG IV ONE (11:30)
[2022-07-30] MEDS ORDERED: HYDROmorphone 1 MG/ML Syringe IVPUSH ONE ×3 (12:22→18:17)
[2022-07-30] MEDS ORDERED: Sodium Chloride 0.9% 1,000 ML IV ONE ×2 (14:20→15:25)
[2022-07-30] MEDS: Potassium Chloride 10 MEQ in Premix Bag 1 BAG IV SCH ×3 (14:38→17:44)
[2022-07-30 18:59] VITALS: BP 104/68; PULSE 100
== END 2022-07-30 19:39 ==
LOC: JD.ED 10:50
DX: N30.00 Acute cystitis without hematuria (principal); K80.00 Calculus of gallbladder with acute cholecystitis without obstruction; K76.0 Fatty (change of) liver, not elsewhere classified; R16.0 Hepatomegaly, not elsewhere classified; E87.6 Hypokalemia; D64.89 Other specified anemias
CPT/HCPCS: 36415; 74181; 80053; 83605; 83690; 85025; 96361; 96365; 96366; 96367; 96375; 96376; 99285; J0696; J1170; J3480; J3490; J7030

== ENCOUNTER 2023-10-04 23:11 | Emergency (ER) | payer MEDICARE, BC ==
[2023-10-04] MEDS ORDERED: Sodium Chloride 0.9% 10 ML Syringe FLUSH PRN (23:28)
[2023-10-04 23:57] LABS: BASOPHILS ABSOLUTE AUTO 0.1 K/mm3 (0.0-0.2); BASOPHILS PERCENT AUTO 0.8 % (0.0-1.0); HEMATOCRIT 33.6 % (42.0-52.0); HEMOGLOBIN 11.6 gm/dl (14.0-18.0); IMMATURE GRAN ABSOLUTE AUTO 0.03 K/mm3 (0.00-0.05); IMMATURE GRAN PERCENT AUTO 0.5 % (0.0-0.4); LYMPHOCYTES ABSOLUTE AUTO 0.7 K/mm3 (1.0-4.8); MEAN CORPUSCULAR HEMOGLOBIN 36.3 pg (28.0-32.0); MEAN CORPUSCULAR HGB CONC 34.5 g/dl (32.0-36.0); MEAN PLATELET VOLUME 11.5 fl (9.4-12.4); MONOCYTES ABSOLUTE AUTO 0.7 K/mm3 (0.0-0.8); MONOCYTES PERCENT AUTO 10.3 % (0.0-8.0); NEUTROPHILS ABSOLUTE AUTO 5.1 K/mm3 (1.8-7.7); NEUTROPHILS PERCENT AUTO 77.4 % (41.0-71.0); PLATELET COUNT,PLT 63 K/mm3 (150-400); WHITE BLOOD CELL COUNT,WBC 6.61 K/mm3 (3.9-11.3)
[2023-10-05] MEDS: Ondansetron 4 MG/2 ML SDV IVPUSH ONE
[2023-10-05] MEDS: Pantoprazole 40 MG Vial IVPUSH ONE
[2023-10-05] MEDS ORDERED: Naloxone 0.4 MG/ML SDV IVPUSH PRN (00:15)
[2023-10-05] MEDS: Sucralfate Suspension 1 GM/10 ML Cup PO ONE (00:16)
[2023-10-05 00:17] LABS: ANION GAP 19.3 (5-15); CREATININE 1.2 mg/dL (0.7-1.3); POTASSIUM,K 5.3 mEq/L (3.5-5.1)
[2023-10-05 00:18] LABS: A/G RATIO 0.7 (1-2); ALBUMIN 2.8 g/dl (3.4-5.0); BILIRUBIN TOTAL 1.6 mg/dL (0.2-1.0); BUN/CREATININE RATIO 18.3 (14-18); EST CRCL DRUG DOSING (CG) 57.79 mL/min; MAGNESIUM 1.5 mg/dL (1.8-2.4); PROTEIN TOTAL,TP 7.1 g/dl (6.4-8.2)
[2023-10-05] MEDS: Morphine 2 MG/ML SYRINGE IVPUSH ONE (00:19)
[2023-10-05 00:27] LABS: SLIDE REVIEW ABNORMAL SMEAR
[2023-10-05 00:36] LABS: APPEARANCE,URINE CLEAR (Clear); BILIRUBIN,URINE NEGATIVE (Negative); COLOR,URINE YELLOW (Yellow); GLUCOSE,URINE NEGATIVE (Negative); KETONES,URINE 2+ (Negative); LEUKOCYTE ESTERASE,URINE NEGATIVE (Negative); NITRITE,URINE NEGATIVE (Negative); OCCULT BLOOD,URINE NEGATIVE (Negative); PROTEIN,URINE NEGATIVE (Negative); UROBILINOGEN,URINE 0.2 (0.2-1.0)
[2023-10-05 01:00] LABS: BACTERIA,URINE FEW /hpf (FEW); EPITHELIAL CELLS,URINE 0-5 /hpf (0-5); MUCUS,URINE FEW /hpf (FEW); RBC,URINE 0-5 /hpf (0-5); WBC,URINE 0-5 /hpf (0-5)
[2023-10-05 01:21] LABS: CORONAVIRUS COVID-19 NAA NEGATIVE (NEGATIVE); INFLUENZA A NAA NEGATIVE (NEGATIVE); RESPIRATORY SYNCYTIAL VIR NAA NEGATIVE (NEGATIVE)
[2023-10-05 02:09] VITALS: BP 147/61; PULSE 133
== END 2023-10-05 02:00 | disposition home or self-care (01) ==
LOC: JD.ED 23:11
DX: K92.0 Hematemesis (principal); I85.11 Secondary esophageal varices with bleeding; I10 Essential (primary) hypertension; K21.9 Gastro-esophageal reflux disease without esophagitis; Z88.8 Allergy status to other drugs, medicaments and biological substances; Z88.6 Allergy status to analgesic agent; Z91.041 Radiographic dye allergy status; Z79.899 Other long term (current) drug therapy
CPT/HCPCS: 0241U; 36415; 80053; 81001; 83690; 83735; 85025; 96374; 96375; 99284; A9270; C9113; J2270; J2405

== ENCOUNTER 2023-12-26 15:29 | Emergency (ER) | payer MEDICARE, BC ==
[2023-12-26] MEDS: Sodium Chloride 0.9% 10 ML Syringe FLUSH PRN (15:43)
[2023-12-26 15:56] LABS: BASOPHILS ABSOLUTE AUTO 0.1 K/mm3 (0.0-0.2); EOSINOPHILS ABSOLUTE AUTO 0.1 K/mm3 (0.0-0.4); EOSINOPHILS PERCENT AUTO 1.1 % (0.0-6.0); HEMATOCRIT 35.5 % (42.0-52.0); IMMATURE GRAN ABSOLUTE AUTO 0.03 K/mm3 (0.00-0.05); IMMATURE GRAN PERCENT AUTO 0.4 % (0.0-0.4); LYMPHOCYTES PERCENT AUTO 28.9 % (24.0-44.0); MEAN CORPUSCULAR HEMOGLOBIN 28.9 pg (28.0-32.0); MEAN CORPUSCULAR HGB CONC 33.8 g/dl (32.0-36.0); MEAN CORPUSCULAR VOLUME 85.5 fl (83.0-99.0); MONOCYTES ABSOLUTE AUTO 0.5 K/mm3 (0.0-0.8); MONOCYTES PERCENT AUTO 7.1 % (0.0-8.0); NEUTROPHILS ABSOLUTE AUTO 4.3 K/mm3 (1.8-7.7); NEUTROPHILS PERCENT AUTO 61.5 % (41.0-71.0); PLATELET COUNT,PLT 77 K/mm3 (150-400); RED BLOOD CELL COUNT 4.15 M/mm3 (4.52-5.90); WHITE BLOOD CELL COUNT,WBC 7.05 K/mm3 (3.9-11.3)
[2023-12-26 16:24] LABS: A/G RATIO 0.6 (1-2); ANION GAP 18.7 (5-15); BILIRUBIN TOTAL 1.3 mg/dL (0.2-1.0); BUN/CREATININE RATIO 12.5 (14-18); CALCIUM 8.9 mg/dL (8.5-10.1); CREATININE 1.2 mg/dL (0.7-1.3); EST CRCL DRUG DOSING (CG) 61.15 mL/min; ETHANOL BLOOD MEDICAL 0.32 gm% (0.00); POTASSIUM,K 3.7 mEq/L (3.5-5.1)
[2023-12-26 16:31] VITALS: PULSE 86
[2023-12-26 17:15] LABS: AMPHETAMINES SCREEN, URINE NEGATIVE (CUTOFF=500); BARBITURATE SCREEN,URINE NEGATIVE (CUTOFF=200); BENZODIAZEPINES SCREEN,URINE PRESUMPTIVE POSITIVE (CUTOFF=150); BUPRENORPHINE SCREEN,URINE NEGATIVE (CUTOFF=10); METHADONE SCREEN, URINE NEGATIVE (CUT0FF=200); METHAMPHETAMINES SCREEN, URINE NEGATIVE (CUTOFF=500); OXYCODONE SCREEN,URINE PRESUMPTIVE POSITIVE (CUT0FF=100); THC SCREEN,URINE 20 NG/ML NEGATIVE (CUTOFF=50)
[2023-12-26 18:41] VITALS: BP 149/70
== END 2023-12-26 18:25 | disposition home or self-care (01) ==
LOC: JD.ED 15:29
DX: S06.6X9A Traumatic subarachnoid hemorrhage with loss of consciousness of unspecified duration, initial encounter (principal); S00.01XA Abrasion of scalp, initial encounter; I10 Essential (primary) hypertension; Z88.8 Allergy status to other drugs, medicaments and biological substances; Z91.041 Radiographic dye allergy status; Z79.899 Other long term (current) drug therapy; Z90.49 Acquired absence of other specified parts of digestive tract; W10.8XXA Fall (on) (from) other stairs and steps, initial encounter
CPT/HCPCS: 36415; 70450; 72125; 80053; 80306; 80307; 84484; 85025; 93005; 99285; J3490

== ENCOUNTER 2023-12-27 07:10 | Emergency (ER) | payer MEDICARE, BC ==
[2023-12-27 09:08] VITALS: BP 124/79; PULSE 95
== END 2023-12-27 09:08 | disposition home or self-care (01) ==
LOC: JD.ED 07:10
DX: S06.6X0A Traumatic subarachnoid hemorrhage without loss of consciousness, initial encounter (principal); I10 Essential (primary) hypertension; Z88.5 Allergy status to narcotic agent; Z88.8 Allergy status to other drugs, medicaments and biological substances; W19.XXXA Unspecified fall, initial encounter
CPT/HCPCS: 70450; 70450-26; 99283

== ENCOUNTER 2023-12-30 13:17 | Emergency (ER) | payer MEDICARE, BC ==
[2023-12-30 14:05] VITALS: BP 158/101; PULSE 105
[2023-12-30] MEDS ORDERED: Sodium Chloride 0.9% 10 ML Syringe FLUSH PRN (14:14)
[2023-12-30 15:22] LABS: BASOPHILS PERCENT AUTO 0.4 % (0.0-1.0); EOSINOPHILS ABSOLUTE AUTO 0.1 K/mm3 (0.0-0.4); EOSINOPHILS PERCENT AUTO 1.5 % (0.0-6.0); HEMATOCRIT 36.7 % (42.0-52.0); HEMOGLOBIN 12.2 gm/dl (14.0-18.0); IMMATURE GRAN ABSOLUTE AUTO 0.03 K/mm3 (0.00-0.05); IMMATURE GRAN PERCENT AUTO 0.4 % (0.0-0.4); LYMPHOCYTES ABSOLUTE AUTO 1.6 K/mm3 (1.0-4.8); LYMPHOCYTES PERCENT AUTO 23.8 % (24.0-44.0); MEAN CORPUSCULAR HGB CONC 33.2 g/dl (32.0-36.0); MEAN CORPUSCULAR VOLUME 87.2 fl (83.0-99.0); MONOCYTES ABSOLUTE AUTO 0.5 K/mm3 (0.0-0.8); MONOCYTES PERCENT AUTO 7.9 % (0.0-8.0); NEUTROPHILS ABSOLUTE AUTO 4.5 K/mm3 (1.8-7.7); PLATELET COUNT,PLT 66 K/mm3 (150-400); RED BLOOD CELL COUNT 4.21 M/mm3 (4.52-5.90); WHITE BLOOD CELL COUNT,WBC 6.84 K/mm3 (3.9-11.3)
[2023-12-30 16:24] LABS: A/G RATIO 0.6 (1-2); ALBUMIN 2.9 g/dl (3.4-5.0); ANION GAP 15.5 (5-15); BILIRUBIN TOTAL 1.4 mg/dL (0.2-1.0); CALCIUM 8.9 mg/dL (8.5-10.1); EST CRCL DRUG DOSING (CG) 69.35 mL/min; ETHANOL BLOOD MEDICAL 0.24 gm% (0.00); POTASSIUM,K 3.5 mEq/L (3.5-5.1); PROTEIN TOTAL,TP 7.5 g/dl (6.4-8.2)
== END 2023-12-30 16:54 | disposition home or self-care (01) ==
LOC: JD.ED 13:17
DX: S06.6X0A Traumatic subarachnoid hemorrhage without loss of consciousness, initial encounter (principal); F10.120 Alcohol abuse with intoxication, uncomplicated; I10 Essential (primary) hypertension; K21.9 Gastro-esophageal reflux disease without esophagitis; Z88.5 Allergy status to narcotic agent; Z91.041 Radiographic dye allergy status; Z88.8 Allergy status to other drugs, medicaments and biological substances; W19.XXXA Unspecified fall, initial encounter
CPT/HCPCS: 36415; 70450; 70450-26; 80053; 80307; 85025; 99283; 99285

== ENCOUNTER 2024-04-07 06:00 | Day surgery (SDC) | payer MEDICARE, BC ==
[~2024-04-07 06:00] MED LIST changes: -Bacitracin Oint 15 GM Tube ONE; -Bupivacaine 0.5% 30 ML SDV ONE; -Ketamine 500 mg/10 ML MDV ONE; -Lactated Ringers 1,000 ML IV SCH; -Lactated Ringers 1,000 ML ONE; -Lidocaine 1% with EPINEPHrine 1:100,000 10 ML MDV ONE; -Lidocaine 1%/Sod Bicarbonate in NS 8.4% 1 ML Syringe IDERM PRN; -Midazolam 1 MG/ML 2 ML SDV ONE; -Ondansetron 4 MG/2 ML SDV ONE; -Propofol 200 MG/20 ML SDV ONE; +Sodium Chloride 0.9% 10 ML Syringe FLUSH SCH; -fentaNYL 100 MCG/2 ML SDV IVPUSH ONE; -fentaNYL 100 MCG/2 ML SDV ONE
[2024-04-07] MEDS: Lactated Ringers 1,000 ML IV SCH (06:05)
[2024-04-07] MEDS ORDERED: Propofol 200 MG/20 ML SDV ONE ×2 (06:27→06:51)
[2024-04-07] MEDS ORDERED: fentaNYL 100 MCG/2 ML SDV ONE (06:27)
[2024-04-07] MEDS ORDERED: Ketamine 200 MG/20 ML MDV ONE (06:27)
[2024-04-07] MEDS: Midazolam 1 MG/ML 2 ML SDV IVPUSH ONE (06:32)
[2024-04-07] MEDS ORDERED: ceFAZolin 2 GM Vial ONE (07:04)
[2024-04-07] MEDS ORDERED: HYDROmorphone 0.5 MG/0.5 ML Syringe IVPUSH PRN (07:28)
[2024-04-07] MEDS ORDERED: fentaNYL 100 MCG/2 ML SDV IVPUSH PRN (07:28)
[2024-04-07] MEDS ORDERED: Ondansetron 4 MG/2 ML SDV IVPUSH PRN (07:28)
[2024-04-07 08:28] VITALS: BP 154/78; PULSE 77
[2024-04-07] MEDS: Lidocaine 1% 30 ML SDV ONE (13:57)
[2024-04-07] MEDS: Bupivacaine 0.25% 10 ML SDV ONE (13:58)
== END 2024-04-07 08:05 | disposition home or self-care (01) ==
LOC: JD.SDS 06:00
PROVIDERS: ATTEND Orthopaedic Surgery
DX: M67.441 Ganglion, right hand (principal); I10 Essential (primary) hypertension; F41.9 Anxiety disorder, unspecified; K21.9 Gastro-esophageal reflux disease without esophagitis; D64.9 Anemia, unspecified; E29.1 Testicular hypofunction; Z79.899 Other long term (current) drug therapy
CPT/HCPCS: 26160; J0665; J0690; J2250; J2704; J3010; J7120; 01810; J3490

== ENCOUNTER 2024-04-21 11:39 | Emergency (ER) | payer BC, MEDICARE ==
[2024-04-21 12:33] LABS: BASOPHILS PERCENT AUTO 0.6 % (0.0-1.0); EOSINOPHILS ABSOLUTE AUTO 0.2 K/mm3 (0.0-0.4); EOSINOPHILS PERCENT AUTO 3.3 % (0.0-6.0); HEMATOCRIT 36.7 % (42.0-52.0); HEMOGLOBIN 11.6 gm/dl (14.0-18.0); IMMATURE GRAN ABSOLUTE AUTO 0.04 K/mm3 (0.00-0.05); IMMATURE GRAN PERCENT AUTO 0.6 % (0.0-0.4); LYMPHOCYTES ABSOLUTE AUTO 1.5 K/mm3 (1.0-4.8); LYMPHOCYTES PERCENT AUTO 24.2 % (24.0-44.0); MEAN CORPUSCULAR HEMOGLOBIN 25.1 pg (28.0-32.0); MEAN CORPUSCULAR HGB CONC 31.6 g/dl (32.0-36.0); MEAN CORPUSCULAR VOLUME 79.4 fl (83.0-99.0); MONOCYTES ABSOLUTE AUTO 0.5 K/mm3 (0.0-0.8); MONOCYTES PERCENT AUTO 8.5 % (0.0-8.0); NEUTROPHILS PERCENT AUTO 62.8 % (41.0-71.0); PLATELET COUNT,PLT 70 K/mm3 (150-400); RED BLOOD CELL COUNT 4.62 M/mm3 (4.52-5.90); WHITE BLOOD CELL COUNT,WBC 6.33 K/mm3 (3.9-11.3)
[2024-04-21 12:56] LABS: A/G RATIO 0.9 (1-2); ALANINE AMINOTRANSFERASE,ALT 36 U/L (16-63); ALBUMIN 3.4 g/dl (3.4-5.0); ALKALINE PHOSPHATASE 90 U/L (46-116); BILIRUBIN TOTAL 0.6 mg/dL (0.2-1.0); BLOOD UREA NITROGEN,BUN 16 mg/dL (7-18); CALCIUM 9.5 mg/dL (8.5-10.1); CARBON DIOXIDE,CO2 28 mEq/L (21-32); CHLORIDE,CL 106 mEq/L (98-107); EST CRCL DRUG DOSING (CG) 70.45 mL/min; ESTIMATED GFR 82 mL/min (>60); GLUCOSE RANDOM 115 mg/dL (70-99); PROTEIN TOTAL,TP 7.2 g/dl (6.4-8.2)
[2024-04-21 13:10] LABS: TROPONIN I HIGH SENSITIVITY 9 pg/mL (<=76)
[2024-04-21] MEDS: Sodium Chloride 0.9% 10 ML Syringe FLUSH PRN (13:14)
[2024-04-21] MEDS: Sodium Chloride 0.9% 500 ML IV ONE (13:14)
[2024-04-21 13:58] LABS: SODIUM,NA 142 mEq/L (136-145)
[2024-04-21 14:00] LABS: APPEARANCE,URINE CLEAR (Clear); BILIRUBIN,URINE NEGATIVE (Negative); COLOR,URINE YELLOW (Yellow); GLUCOSE,URINE NEGATIVE (Negative); KETONES,URINE NEGATIVE (Negative); LEUKOCYTE ESTERASE,URINE NEGATIVE (Negative); NITRITE,URINE NEGATIVE (Negative); OCCULT BLOOD,URINE NEGATIVE (Negative); PH,URINE 5.5 (5.0-8.0); PROTEIN,URINE NEGATIVE (Negative); UROBILINOGEN,URINE 0.2 (0.2-1.0)
[2024-04-21] MEDS: fentaNYL 100 MCG/2 ML SDV IVPUSH ONE (14:10)
[2024-04-21 17:35] VITALS: BP 152/89; PULSE 88
== END 2024-04-21 17:15 | disposition home or self-care (01) ==
LOC: JD.ED 11:39
DX: S09.90XA Unspecified injury of head, initial encounter (principal); S22.049A Unspecified fracture of fourth thoracic vertebra, initial encounter for closed fracture; S81.812A Laceration without foreign body, left lower leg, initial encounter; I10 Essential (primary) hypertension; Z88.8 Allergy status to other drugs, medicaments and biological substances; Z91.041 Radiographic dye allergy status; Z79.899 Other long term (current) drug therapy; W19.XXXA Unspecified fall, initial encounter
CPT/HCPCS: 12004; 36415; 70450; 71045; 71250; 72125; 72170; 73590; 74176; 80053; 80307; 81003; 84484; 85025; 93005; 96361; 96374; 99284; J3010; J3490; J7030

== ENCOUNTER 2024-04-22 12:06 | Inpatient (IN) | payer MEDICARE ==
[2024-04-22] MEDS: Sodium Chloride 0.9% 10 ML Syringe FLUSH ONE (12:10)
[2024-04-22] MEDS: methylPREDNISolone Sodium Succinate 125 MG/2 ML SDV IVPUSH ONE (12:31)
[2024-04-22] MEDS: diphenhydrAMINE 50 MG/ML SDV IVPUSH ONE (12:31)
[2024-04-22 12:37] LABS: BASOPHILS PERCENT AUTO 0.5 % (0.0-1.0); EOSINOPHILS ABSOLUTE AUTO 0.2 K/mm3 (0.0-0.4); EOSINOPHILS PERCENT AUTO 2.1 % (0.0-6.0); HEMATOCRIT 37.6 % (42.0-52.0); HEMOGLOBIN 11.8 gm/dl (14.0-18.0); IMMATURE GRAN ABSOLUTE AUTO 0.02 K/mm3 (0.00-0.05); IMMATURE GRAN PERCENT AUTO 0.3 % (0.0-0.4); LYMPHOCYTES ABSOLUTE AUTO 1.5 K/mm3 (1.0-4.8); LYMPHOCYTES PERCENT AUTO 18.2 % (24.0-44.0); MEAN CORPUSCULAR HEMOGLOBIN 25.1 pg (28.0-32.0); MEAN CORPUSCULAR HGB CONC 31.4 g/dl (32.0-36.0); MEAN CORPUSCULAR VOLUME 79.8 fl (83.0-99.0); MONOCYTES ABSOLUTE AUTO 0.7 K/mm3 (0.0-0.8); MONOCYTES PERCENT AUTO 8.2 % (0.0-8.0); NEUTROPHILS ABSOLUTE AUTO 5.6 K/mm3 (1.8-7.7); NEUTROPHILS PERCENT AUTO 70.7 % (41.0-71.0); PLATELET COUNT,PLT 74 K/mm3 (150-400); RED BLOOD CELL COUNT 4.71 M/mm3 (4.52-5.90); WHITE BLOOD CELL COUNT,WBC 7.95 K/mm3 (3.9-11.3)
[2024-04-22 12:47] LABS: INR 1.13; PROTHROMBIN TIME 11.9 SECONDS (9.7-12.0)
[2024-04-22] MEDS: Iopamidol 755 Mg/ML 100 ML Bottle IVPUSH ONE (12:47)
[2024-04-22] MEDS: Sodium Chloride 0.9% 100 ML IV SCH (12:47)
[2024-04-22] MEDS: Sodium Chloride 0.9% 10 ML Syringe FLUSH PRN (12:47)
[2024-04-22 12:48] LABS: PTT,PARTIAL THROMBOPLSTIN TIME 26.2 SECONDS (21.7-31.4)
[2024-04-22 13:07] LABS: A/G RATIO 1.1 (1-2); ALBUMIN 3.7 g/dl (3.4-5.0); ANION GAP 12.3 (5-15); BILIRUBIN TOTAL 1.2 mg/dL (0.2-1.0); BUN/CREATININE RATIO 12.3 (14-18); CALCIUM 9.7 mg/dL (8.5-10.1); CREATININE 1.3 mg/dL (0.7-1.3); EST CRCL DRUG DOSING (CG) 54.13 mL/min; MAGNESIUM 1.8 mg/dL (1.8-2.4); POTASSIUM,K 4.3 mEq/L (3.5-5.1); PROTEIN TOTAL,TP 7.1 g/dl (6.4-8.2); T4 FREE 1.06 ng/dL (0.76-1.46); TSH 0.85 uIU/mL (0.358-3.74)
[2024-04-22] MEDS: Sodium Chloride 0.9% 500 ML IV SCH (13:15)
[2024-04-22 13:17] LABS: LACTIC ACID 0.9 mmol/L (0.4-2.0); SLIDE REVIEW ABNORMAL SMEAR
[2024-04-22 14:28] LABS: CORONAVIRUS COVID-19 NAA NEGATIVE (NEGATIVE); INFLUENZA A NAA NEGATIVE (NEGATIVE); RESPIRATORY SYNCYTIAL VIR NAA NEGATIVE (NEGATIVE)
[2024-04-22] MEDS ORDERED: Ondansetron 4 MG/2 ML SDV IV PRN (19:14)
[2024-04-22] MEDS ORDERED: Acetaminophen 325 MG Tab PO PRN (19:14)
[2024-04-22] MEDS: Sodium Chloride 0.9% 1,000 ML IV SCH (19:57)
[2024-04-22 20:01] LABS: APPEARANCE,URINE CLEAR (Clear); BILIRUBIN,URINE NEGATIVE (Negative); COLOR,URINE YELLOW (Yellow); GLUCOSE,URINE NEGATIVE (Negative); KETONES,URINE NEGATIVE (Negative); LEUKOCYTE ESTERASE,URINE NEGATIVE (Negative); NITRITE,URINE NEGATIVE (Negative); OCCULT BLOOD,URINE NEGATIVE (Negative); PROTEIN,URINE NEGATIVE (Negative)
[2024-04-22 20:17] LABS: BARBITURATE SCREEN,URINE NEGATIVE (CUTOFF=200); BENZODIAZEPINES SCREEN,URINE PRESUMPTIVE POSITIVE (CUTOFF=150); BUPRENORPHINE SCREEN,URINE NEGATIVE (CUTOFF=10); METHADONE SCREEN, URINE PRESUMPTIVE POSITIVE (CUT0FF=200); METHAMPHETAMINES SCREEN, URINE NEGATIVE (CUTOFF=500); OXYCODONE SCREEN,URINE PRESUMPTIVE POSITIVE (CUT0FF=100); THC SCREEN,URINE 20 NG/ML NEGATIVE (CUTOFF=50)
[2024-04-22 20:22] LABS: AMPHETAMINES SCREEN, URINE NEGATIVE (CUTOFF=500)
[2024-04-23 07:07] LABS: HEMATOCRIT 34.2 % (42.0-52.0); HEMOGLOBIN 10.9 gm/dl (14.0-18.0); MEAN CORPUSCULAR HGB CONC 31.9 g/dl (32.0-36.0); MEAN CORPUSCULAR VOLUME 78.4 fl (83.0-99.0); PLATELET COUNT,PLT 64 K/mm3 (150-400); RED BLOOD CELL COUNT 4.36 M/mm3 (4.52-5.90); WHITE BLOOD CELL COUNT,WBC 6.51 K/mm3 (3.9-11.3)
[2024-04-23 07:31] LABS: A/G RATIO 0.9 (1-2); ALBUMIN 3.2 g/dl (3.4-5.0); ANION GAP 14.1 (5-15); BILIRUBIN TOTAL 0.8 mg/dL (0.2-1.0); BUN/CREATININE RATIO 21.1 (14-18); CALCIUM 9.3 mg/dL (8.5-10.1); CREATININE 0.9 mg/dL (0.7-1.3); EST CRCL DRUG DOSING (CG) 74.4 mL/min; POTASSIUM,K 4.1 mEq/L (3.5-5.1); PROTEIN TOTAL,TP 6.8 g/dl (6.4-8.2)
[2024-04-23] MEDS: Pantoprazole 40 MG Vial IVPUSH SCH (09:46)
[2024-04-23] MEDS: oxyCODONE 5 MG Tab PO PRN (14:28)
[2024-04-23 16:08] VITALS: BP 123/68; PULSE 75
== END 2024-04-23 16:50 | disposition left against medical advice (07) | DRG 57 ==
LOC: JD.ED 12:06 → JD.MS 18:09
PROVIDERS: ADMIT Internal Medicine; ATTEND Internal Medicine
DX: G31.2 Degeneration of nervous system due to alcohol (principal); D64.9 Anemia, unspecified; J44.9 Chronic obstructive pulmonary disease, unspecified; Z90.49 Acquired absence of other specified parts of digestive tract; Z79.51 Long term (current) use of inhaled steroids; K21.9 Gastro-esophageal reflux disease without esophagitis; I10 Essential (primary) hypertension; Z88.8 Allergy status to other drugs, medicaments and biological substances; S06.0X0A Concussion without loss of consciousness, initial encounter; W10.9XXA Fall (on) (from) unspecified stairs and steps, initial encounter; F41.9 Anxiety disorder, unspecified; D69.6 Thrombocytopenia, unspecified; Z88.5 Allergy status to narcotic agent; Z90.89 Acquired absence of other organs; Z91.041 Radiographic dye allergy status; Z79.899 Other long term (current) drug therapy; Z98.890 Other specified postprocedural states; X58.XXXA Exposure to other specified factors, initial encounter
CPT/HCPCS: 0241U; 36415; 70450; 70450-26; 70496; 70496-26; 70498; 70498-26; 70551; 70551-26; 71045; 71045-26; 80053; 80143; 80179; 80306; 80307; 81003; 82140; 82550; 82947; 83605; 83690; 83735; 83880; 84439; 84443; 84484; 85025; 85027; 85610; 85730; 87040; 93005; 94760; 96361; 96374; 96375; 99285-25; A9270-GY; J1200; J2470; J2919; J3490; J7030; J7040; Q9967

== ENCOUNTER 2024-05-24 09:05 | Emergency (ER) | payer BC, MEDICARE ==
[2024-05-24 11:29] VITALS: BP 145/75; PULSE 78
== END 2024-05-24 10:56 | disposition home or self-care (01) ==
LOC: JD.ED 09:05
DX: L03.116 Cellulitis of left lower limb (principal); I10 Essential (primary) hypertension; K21.9 Gastro-esophageal reflux disease without esophagitis; Z79.899 Other long term (current) drug therapy; Z88.8 Allergy status to other drugs, medicaments and biological substances; Z91.041 Radiographic dye allergy status
CPT/HCPCS: 99283; 99284